=== PATIENT | female | born 1965 | race Caucasian/White ===

== ENCOUNTER 2017-02-23 17:27 | Inpatient (IN) | payer OTHER ==
[~2017-02-23] VITALS: Ht 162.6 cm; Wt 62.1 kg
[2017-02-23] MEDS ORDERED: ONDANSETRON HCL/PF 4 MG/2 ML VIAL ONE (17:48)
[2017-02-23] MEDS ORDERED: HYDROMORPHONE INJ 2 MG/ML DISP.SYRIN ONE ×2 (17:49→19:50)
[2017-02-23] MEDS ORDERED: HYDROMORPHONE 1 MG/1 ML DISP.SYRIN IV ONE ×2 (18:00→20:00)
[2017-02-23] MEDS ORDERED: ONDANSETRON HCL/PF 4 MG/2 ML VIAL IV ONE (18:00)
--- NOTE | 2017-02-23 18:06 | NUR ---
PAIN MEDS GIVEN ORDERED
[2017-02-23] MEDS ORDERED: DOCU-141 PO (18:36)
[2017-02-23] MEDS ORDERED: OXYB10TA PO (18:36)
[2017-02-23] MEDS ORDERED: BACL20TA PO (18:36)
[2017-02-23] MEDS ORDERED: ZINC220C8 PO (18:36)
[2017-02-23] MEDS ORDERED: MULT-24 PO (18:36)
[2017-02-23] MEDS ORDERED: OXYC-133 PO (18:36)
[2017-02-23] MEDS ORDERED: TIZA4TAB4 PO (18:36)
[2017-02-23] MEDS ORDERED: SENN-167 PO (18:36)
[2017-02-23] MEDS ORDERED: DEXT30TA10 PO (18:36)
--- NOTE | 2017-02-23 18:48 | NUR ---
Dr. joseph has been paged
[2017-02-23 18:52] LABS: BASOPHILS # (AUTO) 0.1 /CMM (0.0-0.2); BASOPHILS % (AUTO) 1.5 % (0.0-2.0); EOSINOPHILS # (AUTO) 0.2 /CMM (0.0-0.7); EOSINOPHILS % (AUTO) 2.1 % (0.0-6.0); HEMATOCRIT 45 % (33-45); HEMOGLOBIN 15.1 g/dL (11.5-14.8); LYMPHOCYTES # (AUTO) 1.6 /CMM (0.8-4.8); LYMPHOCYTES % (AUTO) 17.3 % (20.0-44.0); MEAN CORPUSCULAR HEMOGLOBIN 30 PG (26.0-33.0); MEAN CORPUSCULAR HGB CONC 34 g/dl (31.0-36.0); MEAN CORPUSCULAR VOLUME 89 fL (82-100); MONOCYTES # (AUTO) 0.4 /CMM (0.1-1.30); MONOCYTES % (AUTO) 4.2 % (2.0-12.0); NEUTROPHILS # (AUTO) 7.1 /CMM (1.8-8.9); NEUTROPHILS % (AUTO) 74.9 % (43.0-81.0); PLATELET COUNT (AUTO) 195 /CMM (150-450); RDW COEFFICIENT OF VARIATION 13.4 (11.5-15.0); RED BLOOD CELL COUNT(AUTO) 4.99 MIL/uL (4.0-5.2); WHITE BLOOD COUNT (AUTO) 9.4 K/uL (4.3-11.0)
--- NOTE | 2017-02-23 18:53 | NUR ---
ORTHO ON-CALL DR YANES PAGED THRU EXCHANGE
[2017-02-23 19:03] LABS: CALCIUM, SERUM 9.1 mg/dL (8.5-10.1); CREATININE 0.6 mg/dL (0.6-1.3)
[2017-02-23 19:07] LABS: PROTHROMBIN TIME 10.4 SECS (9.5-12.7)
[2017-02-23] MEDS ORDERED: IV NS 0.9% 1,000 ML IV ONE (20:00)
[2017-02-23] MEDS ORDERED: ACETAMINOPHEN 325 MG TABLET PO PRN (20:30)
[2017-02-23] MEDS ORDERED: ZOLPIDEM TARTRATE 5 MG TABLET PO PRN (20:30)
[2017-02-23] MEDS ORDERED: MAG HYDROX/AL HYDROX/SIMETH 30 ML UDC PO PRN (20:30)
[2017-02-23] MEDS ORDERED: HYDROCODONE/APAP 10/325MG 1 EA TABLET PO PRN (20:30)
[2017-02-23] MEDS ORDERED: Z GUARD REMEDY 2 OZ OINT TP PRN (20:30)
[2017-02-23] MEDS ORDERED: ONDANSETRON HCL/PF 4 MG/2 ML VIAL IVP PRN (20:30)
[2017-02-23] MEDS ORDERED: HYDROCODONE/APAP 5/325MG 1 EACH TABLET PO PRN (20:30)
[2017-02-23] MEDS ORDERED: MAGNESIUM HYDROXIDE 30 ML UDC PO PRN (20:30)
[2017-02-23] MEDS ORDERED: MORPHINE SULFATE INJ 2 MG/ML DISP.SYRIN IV PRN ×2 (20:30→22:30)
[2017-02-23 20:41] LABS: APPEARANCE,URINE Slightly Cloudy (CLEAR); BILIRUBIN,URINE Negative (NEGATIVE); BLOOD, URINE Negative Ery/uL (NEGATIVE); COLOR,URINE Yellow (YELLOW); KETONES,URINE Negative (NEGATIVE); LEUKOCYTE ESTERASE ,URINE Small (NEGATIVE); NITRITE, URINE Positive (NEGATIVE); PROTEIN,URINE Negative (NEGATIVE); UGLUCOSE Negative (NEGATIVE); UROBILINOGEN,URINE 0.2 EU/dL (0.2)
[2017-02-23 20:59] LABS: BACTERIA,URINE Moderate /HPF (None Seen); RBC,URINE NONE SEEN /HPF (0-2); SQUAMOUS EPITHELIAL CELL,UR Rare /HPF (None Seen); TRIPLE PHOSPHATE CRYSTAL,UR Moderate /HPF (None Seen); URINE AMORPHOUS PHOSPHATES Rare /HPF (None Seen)
[2017-02-23] MEDS ORDERED: AMPHET ASP PO SCH (21:00)
[2017-02-23] MEDS ORDERED: D AMPHET PO SCH (21:00)
[2017-02-23] MEDS ORDERED: AMPHET PO SCH (21:00)
--- NOTE | 2017-02-23 21:07 | NUR ---
REPORT GIVEN ARVI
[2017-02-23 21:15] VITALS: BP 145/99
--- NOTE | 2017-02-23 21:15 | NUR ---
RN NOTES RECEIVED PATIENT FROM ER FOR DX RIGHT HIP FRACTURE. PATIENT AO X 3, ABLE TO MAKE NEEDS KNOWN. NO ACUTE DISTRESS NOTED. PAIN 8/10 ON RIGHT HIP WHEN DURING TRANSFER ONTO BED. IV SITE PATENT, INTACT; FLUSHED. BURGOS CATHETER PATENT, INTACT; DRAINING CLEAR, YELLOW URINE. ON LOW BED WITH BILATERAL UPPER SIDE RAILS UP. CALL GUTIERREZ WITHIN EASY REACH. WAITING FOR ADMISSION ORDERS. WILL CONTINUE TO MONITOR PATIENT.
[2017-02-23 21:30] VITALS: BP 145/99
[2017-02-23] MEDS ORDERED: MORPHINE SULFATE INJ 4 MG/ML DISP.SYRIN ONE (22:14)
[2017-02-23] MEDS ORDERED: MORPHINE SULFATE INJ 4 MG/ML DISP.SYRIN IV PRN (22:30)
[2017-02-23] MEDS ORDERED: NICOTINE PATCH (21MG) 21 MG PATCH.TD24 TD ONE (23:26)
[2017-02-23] MEDS: NICOTINE PATCH (21MG) 21 MG PATCH.TD24 TD SCH (23:30)
[2017-02-23] MEDS ORDERED: ZOLPIDEM TARTRATE 5 MG TABLET ONE (23:50)
[2017-02-24] MEDS ORDERED: CEFTRIAXONE 1 G in IV D5W 50 ML IV SCH (01:30)
[2017-02-24] MEDS ORDERED: CEFTRIAXONE 1 G VIAL ONE (02:01)
[2017-02-24] MEDS ORDERED: HYDROMORPHONE 1 MG/1 ML DISP.SYRIN ONE ×2 (02:02→05:57)
[2017-02-24] MEDS: HYDROMORPHONE 1 MG/1 ML DISP.SYRIN IV PRN ×9 (02:10→23:11)
--- NOTE | 2017-02-24 06:15 | NUR ---
RN NOTES PATIENT WITH EYES CLOSED, AROUSABLE. RESPIRATIONS EVEN. DILAUDID IV GIVEN FOR RIGHT HIP PAIN. DUE MED GIVEN WITH NO ASE NOTED. NEEDS ATTENDED. HIP PRECAUTION MAINTAINED. SAFETY PRECAUTIONS AND COMFORT MEASURES IN PLACE. WILL GIVE REPORT TO DAY SHIFT FOR CONTINUITY OF CARE.
[2017-02-24 07:37] LABS: BASOPHILS % (AUTO) 0.3 % (0.0-2.0); EOSINOPHILS # (AUTO) 0.3 /CMM (0.0-0.7); EOSINOPHILS % (AUTO) 4.7 % (0.0-6.0); HEMATOCRIT 39 % (33-45); HEMOGLOBIN 13.5 g/dL (11.5-14.8); LYMPHOCYTES # (AUTO) 2.3 /CMM (0.8-4.8); MEAN CORPUSCULAR HEMOGLOBIN 31 PG (26.0-33.0); MEAN CORPUSCULAR HGB CONC 35 g/dl (31.0-36.0); MEAN CORPUSCULAR VOLUME 90 fL (82-100); MONOCYTES # (AUTO) 0.5 /CMM (0.1-1.30); MONOCYTES % (AUTO) 7.8 % (2.0-12.0); NEUTROPHILS # (AUTO) 3.8 /CMM (1.8-8.9); NEUTROPHILS % (AUTO) 54.2 % (43.0-81.0); PLATELET COUNT (AUTO) 168 /CMM (150-450); RDW COEFFICIENT OF VARIATION 14.7 (11.5-15.0); RED BLOOD CELL COUNT(AUTO) 4.33 MIL/uL (4.0-5.2); WHITE BLOOD COUNT (AUTO) 7.1 K/uL (4.3-11.0)
[2017-02-24 07:44] LABS: INR 0.98 (0.87-1.13); PROTHROMBIN TIME 10.2 SECS (9.5-12.7)
[2017-02-24 08:00] VITALS: BP 136/84
--- NOTE | 2017-02-24 08:12 | NUR ---
RN MS INITIAL NOTES RECEIVED PT LAYING IN BED. A/OX4, AWAKE ALERT AND RESPONSIVE. RESPIRATIONS ARE EVEN AND UNLABORED, NOT IN ANY ACUTE DISTRESS NOTED. C/O PAIN TO RIGHT HIP, WAITING FOR PHARMACY TO VERIFIY MEDICATIONS. PT IS AWARE. WILL CONTINUE TO MONITOR AND REPOSITION FOR COMFORT. REMINDED PT TO USE CALL LIGHT WHEN ASSISTANCE IS NEEDED. CALL LIGHT IS LEFT WITHIN REACH OF PT.
[2017-02-24 08:13] LABS: CALCIUM, SERUM 8.9 mg/dL (8.5-10.1); CREATININE 0.6 mg/dL (0.6-1.3); MAGNESIUM 1.8 mg/dL (1.8-2.4); PHOSPHORUS 3.9 mg/dL (2.5-4.9); POTASSIUM 3.8 mmol/L (3.5-5.1)
[2017-02-24] MEDS: PANTOPRAZOLE 40 MG TABLET.DR PO SCH (09:00)
[2017-02-24] MEDS ORDERED: SENNOSIDES 8.6 MG TABLET PO SCH (09:00)
[2017-02-24] MEDS: ZINC SULFATE 220 MG CAPSULE PO SCH (09:01)
[2017-02-24] MEDS: BACLOFEN (10 MG) 10 MG TABLET PO SCH ×3 (09:01→17:05)
[2017-02-24] MEDS: MULTIVITAMINS,THERAGRAN 1 UDTAB TABLET PO SCH (09:01)
[2017-02-24] MEDS: OXYBUTYNIN CHLORIDE 5 MG TABLET PO SCH ×2 (09:01→17:05)
[2017-02-24] MEDS: NICOTINE PATCH (21MG) 21 MG PATCH.TD24 TD SCH (09:02)
[2017-02-24] MEDS: TIZANIDINE HCL 4 MG TABLET PO SCH ×3 (09:02→17:05)
--- NOTE | 2017-02-24 13:11 | NUR ---
RN MS NOTES CLEARED MEDICATIONS THIS AM THAT WAS NONADMIN BEFORE 7AM.
[2017-02-24 13:28] LABS: THYROID STIMULATING HORMONE 1.883 uIU/mL (0.358-3.74)
[2017-02-24 14:14] LABS: MAGNESIUM 1.7 mg/dL (1.8-2.4)
[2017-02-24 16:00] VITALS: BP 118/72
[2017-02-24] MEDS: Magnesium 1GM/D5W 100ML PREMIX 100 ML IV SCH ×2 (16:15→17:10)
--- NOTE | 2017-02-24 18:45 | NUR ---
RN NOTES PT REQUESTED FOR ADDERALL, PHARMACY DOES NOT DISPENSE ADDERALL. SPOKE W/ DR. HARVEY AND STATED THAT "PATIENT WILL NEED TO BRING HER HOME MEDICATION." PATIENT MADE AWARE AND STATED "THATS OKAY. I WILL KEEP MY ADDERALL AT HOME." MURALI MORRISON OF DR. YANES CAME IN TO SEE THE PATIENT AND STATED HE WILL PUT ORDERS FOR SURGERY TOMORROW. PT MADE AWARE AND AGREED.
[2017-02-24] MEDS ORDERED: oxyCODONE/APAP (5/325 MG) 1 UDTAB TABLET PO PRN (19:00)
--- NOTE | 2017-02-24 19:51 | NUR ---
RN MS CLOSING NOTES TAMIKO ALFONSO PUT ORDERS FOR SURGERY TOMORROW FOR RIGHT HIP INTRAMEDULLARY RODDING. PT SIGNED CONSENTS AND IS EXCITED FOR SURGERY TOMORROW. ALL DUE MEDS GIVEN, NEEDS MET AND RENDERED. RESPIRATIONS ARE EVEN AND UNLABORED, NOT IN ANY ACUTE DISTRESS NOTED. IV TO LEFT WRIST IS PATENT, DRESSING KEPT CLEAN AND DRY. MAGNESIUM REPLACEMENT DONE WITH NO ASE NOTED. PT KEPT COMFORTABLE, UNABLE TO MOVE A LOT DUE TO RIGHT HIP FX. PT STATED SHE IS HAPPY WITH CARE AND CANT WAIT TO GO HOME. ENDORSED TO NEXT SHIFT FOR CONTINTUITY OF CARE.
[2017-02-24 20:00] VITALS: BP 114/70
--- NOTE | 2017-02-24 20:00 | NUR ---
ms/rn opening notes received report from am rn, patient, alert, oriented x3, able to verbalize needs, respirations even and unlabored, skin warm to touch, require assistance at al times. informed about procedure at 7am in am, consent form has been signed, check list will be provided. bed in lock position. Call lights within reach. Will continue to monitor.
[2017-02-24 20:18] VITALS: BP 114/70
--- NOTE | 2017-02-24 21:00 | NUR ---
ms/rn notes patient reported pain level of 8/10 on right hip will give as needed pain med, will continue to monitor.
[2017-02-24] MEDS: CEFTRIAXONE 1 G in IV D5W 50 ML IV SCH (22:54)
--- NOTE | 2017-02-24 23:19 | NUR ---
ms/rn notes PATIENT PAIN MANAGEMENT MONITORING, ALERT, ORIENTED X3, ABLE TO VERBALIZE NEEDS, REPORTED PAIN LEVEL OF 8/10 , ADMINISTER DILAUDID IVP WITH ORDERED DOSE, WILL MONITOR EFFECTIVENESS.
--- NOTE | 2017-02-24 23:41 | NUR ---
MS/RN NOTES PATIENT REPORTED NICOTINE PATCH REMOVED ACCIDENTALLY APPEARED AGITATED AND REQUESTING FOR MED TO BE APPLIED, MD CONTACTED AND ORDER FOR A ONE TIME PATCH TO BE GIVEN. ORDER TO CARRIED OUT/
[2017-02-25] VITALS (9 sets, daily range): BP systolic 97–123; BP diastolic 56–85
[2017-02-25] MEDS ORDERED: NICOTINE PATCH (21MG) 21 MG PATCH.TD24 TD ONE
[2017-02-25] MEDS ORDERED: NICOTINE PATCH (21MG) 21 MG PATCH.TD24 TD SCH
[2017-02-25] MEDS ORDERED: HYDROMORPHONE 1 MG/1 ML DISP.SYRIN ONE ×4 (01:04→08:47)
[2017-02-25] MEDS: HYDROMORPHONE 1 MG/1 ML DISP.SYRIN IV PRN (01:09)
[2017-02-25] MEDS ORDERED: BACITRACIN 50000 UNITS/VIAL ONE (05:47)
[2017-02-25] MEDS ORDERED: BUPIVACAINE 0.5 % PF 150 MG/30 ML VIAL ONE (05:47)
[2017-02-25] MEDS ORDERED: ANESTHESIA TRAY IN PYXIS 1 EA TRAY MC ONE (05:52)
--- NOTE | 2017-02-25 06:03 | NUR ---
ms/rn notes OR NURSE CAME AND HOUSEHOLD COOK PATIENT IN BED, PREPARED CHECKLIST, CITAL SIGNS CHECK, B/P 130/73, PULSE 92, O2 SAT ROOM AIR AT 96%, TEMP AT 97.8, VERBALIZED PAIN OF 8/10. , BURGOS EMPTIED, BELONGINGS,KEPT BY BEDSIDE, TO HOUSEHOLD COOK. PATIENT ALERT, ORIENTED. ASSISTED FOR SAFETY.
[2017-02-25] MEDS ORDERED: FENTANYL PF 100MCG/2ML AMPUL ONE ×3 (06:23→09:07)
[2017-02-25] MEDS ORDERED: MIDAZOLAM HCL 2 MG/2ML VIAL ONE (06:23)
[2017-02-25] MEDS ORDERED: ROCURONIUM BROMIDE 50 MG/5 ML ONE (06:24)
[2017-02-25] MEDS ORDERED: CLINDAMYCIN 900 MG/6 ML VIAL ONE (06:24)
--- NOTE | 2017-02-25 07:15 | NUR ---
PT IS IN SURGERY. REPORT RECEIVED FROM NIGHT RN ON PATIENT CONDITION.
[2017-02-25 07:29] LABS: CALCIUM, SERUM 8.8 mg/dL (8.5-10.1); CREATININE 0.5 mg/dL (0.6-1.3); MAGNESIUM 1.9 mg/dL (1.8-2.4); POTASSIUM 3.6 mmol/L (3.5-5.1)
[2017-02-25 08:37] LABS: HEMOGLOBIN 13.3 g/dL (11.5-14.8)
[2017-02-25] MEDS: ZINC SULFATE 220 MG CAPSULE PO SCH (09:00)
--- NOTE | 2017-02-25 09:25 | NUR ---
PT RECEIVED FROM SURGERY. NO SOB OR DISTRESS NOTED AT THIS TIME. PATIENT REPORTS 10/10 PAIN. OR GAVE ALL MEDICATIONS THEY WERE ABLE. WILL FAX RX ORDERS AND FOLLOW UP SOON POSSIBLE. VITALS CHECKED AND RECORDED. WILL CONTINUE TO MONITOR.
[2017-02-25] MEDS: TIZANIDINE HCL 4 MG TABLET PO SCH ×3 (09:27→16:23)
[2017-02-25] MEDS: BACLOFEN (10 MG) 10 MG TABLET PO SCH ×3 (09:28→16:23)
[2017-02-25] MEDS ORDERED: MORPHINE SULFATE INJ 4 MG/ML DISP.SYRIN IV PRN ×2 (09:30)
[2017-02-25] MEDS ORDERED: TRAMADOL HCL 50 MG TABLET PO PRN (09:30)
[2017-02-25] MEDS: oxyCODONE IR immediate release 5 MG PO PRN ×3 (09:34→22:38)
[2017-02-25] MEDS ORDERED: ACETAMINOPHEN 325 MG TABLET PO PRN (10:00)
--- NOTE | 2017-02-25 10:40 | NUR ---
RECEIVED A CALL BACK FROM NATY. STATES OK TO CHANGE MORPHINE TO DILAUDID 1MG Q2H.
[2017-02-25] MEDS: HYDROMORPHONE INJ 2 MG/ML DISP.SYRIN IV PRN ×4 (10:48→22:30)
[2017-02-25] MEDS: PANTOPRAZOLE 40 MG TABLET.DR PO SCH (10:49)
[2017-02-25] MEDS: MULTIVITAMINS,THERAGRAN 1 UDTAB TABLET PO SCH (10:49)
[2017-02-25] MEDS: OXYBUTYNIN CHLORIDE 5 MG TABLET PO SCH ×2 (10:49→16:23)
[2017-02-25] MEDS: NICOTINE PATCH (21MG) 21 MG PATCH.TD24 TD SCH (10:49)
[2017-02-25] MEDS ORDERED: HYDROMORPHONE 1 MG/1 ML DISP.SYRIN IV PRN (11:00)
--- NOTE | 2017-02-25 16:21 | NUR ---
CALLED PHARMACY PT CLINDAMYCIN IS MISSING. PHARMACIST AC STATES SHE WILL SEND THE MEDICATION.
[2017-02-25] MEDS: CLINDAMYCIN 900 MG in IV D5W 50 ML IV SCH (16:50)
--- NOTE | 2017-02-25 17:25 | NUR ---
RECEIVED A CALL THAT THE PATIENT IS POSITIVE FOR MRSA OF THE NARES. CALLED MD AND PLACED ORDER FOR BACTROBAN OINT. PT PLACED ON ISOLATION.
--- NOTE | 2017-02-25 19:14 | NUR ---
NO SIGNIFICANT CHANGES IN PATIENT CONDITION THROUGHOUT THE SHIFT. NO SOB OR DISTRESS NOTED AT THIS TIME. PATIENT REPORTS TOLERABLE PAIN. BED IN A LOW POSITION, CALL LIGHT WITHIN PATIENT REACH. WILL ENDORSE FOR GRADY.
--- NOTE | 2017-02-25 19:30 | NUR ---
MSRN FULLY AWAKE, AT BEDSIDE. PLAN OF CARE AND MEDICATION REGIMEN CINDY PAIN MGT DISCUSSED WITH PATIENT, APPEARS TO UNDERSTAND. WILL CALL IF NEEDED. HL PATENT. TO CONTINUE. RIGHT HIP DRESSING D/I. FC TO GRAVITY GOOD OUTPUT
[2017-02-25] MEDS: DOCUSATE SODIUM 100 MG CAPSULE PO PRN (19:57)
[2017-02-25] MEDS: SENNOSIDES 8.6 MG TABLET PO PRN (19:57)
--- NOTE | 2017-02-25 22:00 | NUR ---
MSRN MULTIPLE NEEDS, ON FREQ PAIN MED. STATED INCREASING ANXIETY WHEN PAIN MED NOT GIVEN ON TIME. ABLE TO POSITION SELF PER COMFORT WITH MIN ASSIST. OTHER DUE MEDS GIVEN. INSISTED TO HAVE ANOTHER DOSE OF ZANAFLEX AND BACLOFEN. ORDERS RECEIVED FROM DR. DRAKE DIALLO.
[2017-02-25] MEDS: CEFTRIAXONE 1 G in IV D5W 50 ML IV SCH (22:38)
[2017-02-25] MEDS ORDERED: BACLOFEN (10 MG) 10 MG TABLET ONE (23:21)
[2017-02-25] MEDS ORDERED: TIZANIDINE HCL 4 MG TABLET PO SCH (23:30)
[2017-02-26] MEDS: MUPIROCIN OINT 2% 22 GM TUBE SCH ×3 (00:07→21:02)
[2017-02-26] MEDS: BACLOFEN (10 MG) 10 MG TABLET PO SCH ×5 (00:10→20:53)
[2017-02-26] MEDS: HYDROMORPHONE INJ 2 MG/ML DISP.SYRIN IV PRN ×7 (02:01→20:54)
--- NOTE | 2017-02-26 03:23 | NUR ---
MSRN SLEEPS ON/OFF. ATE SOUP, STATED UNABLE TO GO BACK TO SLEEP.
--- NOTE | 2017-02-26 06:00 | NUR ---
CK SLEEPING SOUNDLY, CLOSELY WATCHED. 1700 CC FROM BURGOS.
[2017-02-26 08:00] VITALS: BP 90/57
[2017-02-26 08:22] LABS: BASOPHILS % (AUTO) 0.4 % (0.0-2.0); EOSINOPHILS # (AUTO) 0.2 /CMM (0.0-0.7); EOSINOPHILS % (AUTO) 2.3 % (0.0-6.0); HEMATOCRIT 26 % (33-45); LYMPHOCYTES # (AUTO) 2.6 /CMM (0.8-4.8); LYMPHOCYTES % (AUTO) 28.9 % (20.0-44.0); MEAN CORPUSCULAR HEMOGLOBIN 31 PG (26.0-33.0); MEAN CORPUSCULAR HGB CONC 35 g/dl (31.0-36.0); MEAN CORPUSCULAR VOLUME 91 fL (82-100); MONOCYTES # (AUTO) 0.8 /CMM (0.1-1.30); MONOCYTES % (AUTO) 9.1 % (2.0-12.0); NEUTROPHILS # (AUTO) 5.3 /CMM (1.8-8.9); NEUTROPHILS % (AUTO) 59.3 % (43.0-81.0); PLATELET COUNT (AUTO) 131 /CMM (150-450); RDW COEFFICIENT OF VARIATION 13.9 (11.5-15.0); RED BLOOD CELL COUNT(AUTO) 2.88 MIL/uL (4.0-5.2)
[2017-02-26] MEDS: TIZANIDINE HCL 4 MG TABLET PO SCH ×3 (08:37→16:35)
[2017-02-26] MEDS: MULTIVITAMINS,THERAGRAN 1 UDTAB TABLET PO SCH (08:37)
[2017-02-26] MEDS: OXYBUTYNIN CHLORIDE 5 MG TABLET PO SCH ×2 (08:38→16:35)
[2017-02-26] MEDS: ZINC SULFATE 220 MG CAPSULE PO SCH (08:43)
[2017-02-26] MEDS: NICOTINE PATCH (21MG) 21 MG PATCH.TD24 TD SCH (08:43)
[2017-02-26] MEDS: PANTOPRAZOLE 40 MG TABLET.DR PO SCH (08:43)
[2017-02-26] MEDS: RIVAROXABAN 10 MG TABLET PO SCH (08:46)
[2017-02-26 08:47] LABS: CALCIUM, SERUM 8.1 mg/dL (8.5-10.1); CREATININE 0.5 mg/dL (0.6-1.3); POTASSIUM 3.6 mmol/L (3.5-5.1)
[2017-02-26] MEDS: oxyCODONE IR immediate release 5 MG PO PRN ×2 (10:05→17:49)
[2017-02-26] MEDS: CLINDAMYCIN 900 MG in IV D5W 50 ML IV SCH ×3 (10:05)
[2017-02-26] MEDS: SOD FERRIC GLUC 125 MG in IV NS 0.9% 100 ML IV SCH (14:33)
--- NOTE | 2017-02-26 19:40 | NUR ---
MSRN FULLY AWAKE, AT BEDSIDE. NO NEEDS FOR NOW.
[2017-02-26 20:19] VITALS: BP 95/47
[2017-02-26] MEDS: SENNOSIDES 8.6 MG TABLET PO PRN (20:53)
[2017-02-26] MEDS: DOCUSATE SODIUM 100 MG CAPSULE PO PRN (20:53)
--- NOTE | 2017-02-26 21:40 | NUR ---
MSRN VERBALIZES RIGHT HIP PAIN AND BACK SPASMS, DILAUDED 1MG ADMINISTERD.
--- NOTE | 2017-02-26 22:45 | NUR ---
MSRN IN GOOD SPIRITS, STATED EAGER TO SEE PHYSICAL THERAPIST IN AM AND WILL TRY TO INCREASE HER ACTIVITY AND PARTICIPATION. HS CARE DONE, ABLE TO REPOSITION SELF FOR COMFORT. ALL NEEDS MADE, CONTINUED.
[2017-02-26] MEDS: CEFTRIAXONE 1 G in IV D5W 50 ML IV SCH (22:53)
[2017-02-27] MEDS: oxyCODONE IR immediate release 5 MG PO PRN ×2 (00:08→21:43)
[2017-02-27] MEDS: HYDROMORPHONE INJ 2 MG/ML DISP.SYRIN IV PRN ×8 (01:46→22:41)
--- NOTE | 2017-02-27 03:34 | NUR ---
MSRN SLEEPING APPEARS COMFORTABLE. HAS BEEN COMPLAINING OF RIGHT HIP PAIN Q 2 TO 3 HOURS LAST NIGHT, HAS BEEN MEDICATED WITH DILAUDED IV AND OXY IR IN BETWEEN. LESS ANXIOUS FROM LAST NIGHT. CLOSELY WATCHED
[2017-02-27 07:53] LABS: BASOPHILS % (AUTO) 0.3 % (0.0-2.0); EOSINOPHILS # (AUTO) 0.3 /CMM (0.0-0.7); EOSINOPHILS % (AUTO) 4.2 % (0.0-6.0); HEMATOCRIT 26 % (33-45); LYMPHOCYTES # (AUTO) 1.9 /CMM (0.8-4.8); LYMPHOCYTES % (AUTO) 24.9 % (20.0-44.0); MEAN CORPUSCULAR HEMOGLOBIN 31 PG (26.0-33.0); MEAN CORPUSCULAR HGB CONC 35 g/dl (31.0-36.0); MEAN CORPUSCULAR VOLUME 90 fL (82-100); MONOCYTES # (AUTO) 0.6 /CMM (0.1-1.30); MONOCYTES % (AUTO) 7.4 % (2.0-12.0); NEUTROPHILS # (AUTO) 4.8 /CMM (1.8-8.9); NEUTROPHILS % (AUTO) 63.2 % (43.0-81.0); PLATELET COUNT (AUTO) 161 /CMM (150-450); RED BLOOD CELL COUNT(AUTO) 2.87 MIL/uL (4.0-5.2); WHITE BLOOD COUNT (AUTO) 7.7 K/uL (4.3-11.0)
[2017-02-27 08:00] VITALS: BP 126/69
[2017-02-27 08:30] LABS: CALCIUM, SERUM 8.5 mg/dL (8.5-10.1); CREATININE 0.5 mg/dL (0.6-1.3); POTASSIUM 3.6 mmol/L (3.5-5.1)
[2017-02-27] MEDS: NICOTINE PATCH (21MG) 21 MG PATCH.TD24 TD SCH (08:30)
[2017-02-27] MEDS: PANTOPRAZOLE 40 MG TABLET.DR PO SCH (08:30)
[2017-02-27] MEDS: MULTIVITAMINS,THERAGRAN 1 UDTAB TABLET PO SCH (08:30)
[2017-02-27] MEDS: BACLOFEN (10 MG) 10 MG TABLET PO SCH ×4 (08:30→20:27)
[2017-02-27] MEDS: ZINC SULFATE 220 MG CAPSULE PO SCH (08:30)
[2017-02-27] MEDS: TIZANIDINE HCL 4 MG TABLET PO SCH ×3 (08:30→17:45)
[2017-02-27] MEDS: OXYBUTYNIN CHLORIDE 5 MG TABLET PO SCH ×2 (08:30→17:45)
[2017-02-27] MEDS: MUPIROCIN OINT 2% 22 GM TUBE SCH ×2 (08:40→20:33)
[2017-02-27] MEDS: SOD FERRIC GLUC 125 MG in IV NS 0.9% 100 ML IV SCH (15:17)
[2017-02-27 16:00] VITALS: BP 123/82
[2017-02-27] MEDS: RIVAROXABAN 10 MG TABLET PO SCH (17:55)
--- NOTE | 2017-02-27 19:15 | NUR ---
RN NOTES PATIENT ALERT AND ORIENTED X4, NO DISTRESS NOTED, DENIES PAIN AT THIS TIME, PATIENT WORKED WITH PHYSICAL THERAPY TODAY. ALL NEEDS ATTENDED AND MET, PATIENT ABLE TO HELP WITH REPOSITIONING. CALL LIGHT WITHIN REACH, WILL ENDORSE TO CLOUD AUTOMATION TESTER FOR GRADY.
--- NOTE | 2017-02-27 19:50 | NUR ---
MS RN NOTE: PATIENT RESTING IN BED, NO ACUTE DISTRESS NOTED. BREATHING EVEN AND UNLABORED, NO SOB NOTED. IV TO LFA IN PLACE. BURGOS CATHETER IN PLACE DRAINING CLEAR YELLOW URINE. BED LOCKED AND IN LOWEST POSITION, CALL LIGHT IN REACH. WILL CONTINUE TO MONITOR.
--- NOTE | 2017-02-27 20:30 | NUR ---
MS RN NOTE: PATIENT COMPLAINS OF PAIN TO RIGHT HIP/LEG, DILAUDID 1MG IV GIVEN PER MD ORDER. WILL CONTINUE TO MONITOR.
[2017-02-27 20:36] VITALS: BP 116/71
[2017-02-27] MEDS: SENNOSIDES 8.6 MG TABLET PO PRN (20:38)
[2017-02-27] MEDS: DOCUSATE SODIUM 100 MG CAPSULE PO PRN (20:38)
--- NOTE | 2017-02-27 21:45 | NUR ---
MS RN NOTE: PATIENT COMPLAINS OF PAIN TO RIGHT HIP/LEG, OXY IR 5MG ORAL GIVEN PER MD ORDER. PATIENT ALSO REQUEST FOR STOOL SOFTENER AND THAT NEEDS BOTH COLACE AND SENAKOT TOGETHER SINCE SHE HAS RECTAL PROLAPSE. COLACE AND SENAKOT ORAL GIVEN PER MD ORDER. WILL CONTINUE TO MONITOR.
[2017-02-27] MEDS: CEFTRIAXONE 1 G in IV D5W 50 ML IV SCH (22:41)
--- NOTE | 2017-02-27 22:45 | NUR ---
MS RN NOTE: PATIENT COMPLAINS OF PAIN TO RIGHT HIP/LEG, DILAUDID 1MG IV GIVEN PER MD ORDER. WILL CONTINUE TO MONITOR.
--- NOTE | 2017-02-28 00:30 | NUR ---
MS RN NOTE: PATIENT MOVED TO ROOM 201, BELONGINGS MOVED WITH PATIENT. BED LOCKED AND CALL LIGHT IN REACH. WILL CONTINUE TO MONITOR.
[2017-02-28] MEDS: HYDROMORPHONE INJ 2 MG/ML DISP.SYRIN IV PRN ×9 (00:48→17:55)
--- NOTE | 2017-02-28 03:00 | NUR ---
MS RN NOTE: PATIENT COMPLAINS OF PAIN TO RIGHT HIP/LEG, DILAUDID 1MG IV GIVEN PER MD ORDER. WILL CONTINUE TO MONITOR.
--- NOTE | 2017-02-28 05:00 | NUR ---
MS RN NOTE: PATIENT COMPLAINS OF PAIN TO RIGHT HIP/LEG, DILAUDID 1MG IV GIVEN PER MD ORDER. WILL CONTINUE TO MONITOR.
--- NOTE | 2017-02-28 06:05 | NUR ---
MS RN NOTE: PATIENT RESTING IN BED, NO ACUTE DISTRESS NOTED. BREATHING EVEN AND UNLABORED, NO SOB NOTED. IV TO LFA IN PLACE. BURGOS CATHETER IN PLACE DRAINING CLEAR YELLOW URINE. BED LOCKED AND IN LOWEST POSITION, CALL LIGHT IN REACH. WILL ENDORSE TO DAY NURSE TO CONTINUE WITH PLAN OF CARE.
[2017-02-28 08:00] VITALS: BP_SYST 114; BP_DIAS 60; BP_DIAS 61
[2017-02-28] MEDS: NICOTINE PATCH (21MG) 21 MG PATCH.TD24 TD SCH (08:14)
[2017-02-28] MEDS: PANTOPRAZOLE 40 MG TABLET.DR PO SCH (08:14)
[2017-02-28] MEDS: BACLOFEN (10 MG) 10 MG TABLET PO SCH ×3 (08:14→16:12)
[2017-02-28] MEDS: OXYBUTYNIN CHLORIDE 5 MG TABLET PO SCH ×2 (08:14→16:13)
[2017-02-28] MEDS: TIZANIDINE HCL 4 MG TABLET PO SCH ×3 (08:14→16:13)
[2017-02-28] MEDS: ZINC SULFATE 220 MG CAPSULE PO SCH (08:14)
[2017-02-28] MEDS: MULTIVITAMINS,THERAGRAN 1 UDTAB TABLET PO SCH (08:15)
[2017-02-28] MEDS: MUPIROCIN OINT 2% 22 GM TUBE SCH (08:24)
--- NOTE | 2017-02-28 08:30 | NUR ---
RN MS INITIAL NOTES RECEIVED PT LAYING IN BED WITH HOB ELEVATED. S/P RIGHT HIP FX, C/O PAIN 09/29. A/O X4, RESPIRATIONS ARE EVEN AND UNLABORED, NOT IN ANY ACUTE DISTRESS NOTED. IV TO LAF IS NOT PATENT, WILL INSERT A NEW PERIPHERAL IV. REMINDED PT TO USE CALL LIGHT WHEN ASSISTANCE IS NEEDED, CALL LIGHT LEFT WITHIN REACH.
[2017-02-28 08:48] LABS: BASOPHILS % (AUTO) 0.2 % (0.0-2.0); EOSINOPHILS # (AUTO) 0.3 /CMM (0.0-0.7); EOSINOPHILS % (AUTO) 4.6 % (0.0-6.0); HEMATOCRIT 25 % (33-45); HEMOGLOBIN 8.6 g/dL (11.5-14.8); LYMPHOCYTES # (AUTO) 2.1 /CMM (0.8-4.8); LYMPHOCYTES % (AUTO) 30.4 % (20.0-44.0); MEAN CORPUSCULAR HEMOGLOBIN 31 PG (26.0-33.0); MEAN CORPUSCULAR HGB CONC 35 g/dl (31.0-36.0); MEAN CORPUSCULAR VOLUME 91 fL (82-100); MONOCYTES # (AUTO) 0.6 /CMM (0.1-1.30); MONOCYTES % (AUTO) 8.7 % (2.0-12.0); NEUTROPHILS # (AUTO) 3.9 /CMM (1.8-8.9); NEUTROPHILS % (AUTO) 56.1 % (43.0-81.0); PLATELET COUNT (AUTO) 182 /CMM (150-450); RDW COEFFICIENT OF VARIATION 13.8 (11.5-15.0); RED BLOOD CELL COUNT(AUTO) 2.75 MIL/uL (4.0-5.2)
[2017-02-28 08:56] LABS: CALCIUM, SERUM 8.5 mg/dL (8.5-10.1); CREATININE 0.5 mg/dL (0.6-1.3); POTASSIUM 3.3 mmol/L (3.5-5.1)
[2017-02-28] MEDS: oxyCODONE IR immediate release 5 MG PO PRN ×2 (09:58→16:50)
[2017-02-28] MEDS ORDERED: POTASSIUM CHLORIDE 20 MEQ POWDER PACKET NG SCH (12:30)
[2017-02-28] MEDS: SOD FERRIC GLUC 125 MG in IV NS 0.9% 100 ML IV SCH (14:13)
[2017-02-28 15:44] VITALS: BP 103/63
[2017-02-28] MEDS: RIVAROXABAN 10 MG TABLET PO SCH (16:12)
--- NOTE | 2017-02-28 18:50 | NUR ---
GENERAL SUPERINTENDENT NOTES PATIENT DISCHARGED TO [facility] AT 1850 VIA AMBULANCE ACCOMANIED BY EMT PERSONNEL AND IN MEDICALLY STABLE CONDITION. A/O X4, RESPIRATIONS ARE EVEN AND UNLABORED, NOT IN ANY ACUTE DISTRESS NOTED. VITAL SIGNS REMAINS WNL. ADMINISTERED ALL DUE MEDICATIONS, INCLUDING DILAUDID 1MG VIA IV FOR PAIN LEVEL 6/10 PRIOR TO LEAVING. DISCHARGE PAPERWORKS EXPLAINED TO PT AND WITH VERBALIZED UNDERSTANDING. ALL BELONGINGS SENT WITH PT. CALLED [facility], SPOKE WITH PRICILA TO GIVE REPORT AT 1700. BEDSIDE ENDORSEMENT GIVEN TO EMT PERSONNEL.
== END 2017-02-28 18:45 | DRG 481 ==
LOC: ER 17:28 → MEDSG2 20:59
PROVIDERS: ADMIT Internal Medicine; ATTEND Internal Medicine
PROC: 0QS604Z Reposition Right Upper Femur with Internal Fixation Device, Open Approach (ICD-10-PCS; principal; 2017-02-25 06:48)
DX: S72.144A Nondisplaced intertrochanteric fracture of right femur, initial encounter for closed fracture (principal); G82.20 Paraplegia, unspecified; N39.0 Urinary tract infection, site not specified; N31.9 Neuromuscular dysfunction of bladder, unspecified; F32.9 Major depressive disorder, single episode, unspecified; W19.XXXA Unspecified fall, initial encounter; G89.29 Other chronic pain; F90.9 Attention-deficit hyperactivity disorder, unspecified type; F17.200 Nicotine dependence, unspecified, uncomplicated; Z98.1 Arthrodesis status; Y93.9 Activity, unspecified; Y92.009 Unspecified place in unspecified non-institutional (private) residence as the place of occurrence of the external cause; D64.9 Anemia, unspecified; R79.89 Other specified abnormal findings of blood chemistry
CPT/HCPCS: 36415; 71045-TC; 73502; 73552; 73564-TC; 80048-TC; 80061-TC; 81000-TC; 82306; 83735-TC; 84100-TC; 84439-TC; 84443-TC; 85025-TC; 85027-TC; 85610-TC; 85730-TC; 86850-TC; 87081-TC; 87086-TC; 93307-TC; 97110-TC; 97530-TC; A4216; A4606; A6209; A6402; C1713; J0696; J1170; J2250; J2270; J2405; J2916; J3010; J3475; J3490; J7030; J7060; Z7610

== ENCOUNTER 2017-03-29 16:28 | Inpatient (IN) | payer OTHER, MEDICAID ==
[~2017-03-29] VITALS: Ht 162.6 cm; Wt 59.0 kg
[~2017-03-29 16:28] MED LIST: BACL20TA PO; DEXT30TA10 PO; DOCU-141 PO; MULT-24 PO; OXYB10TA PO; OXYC-133 PO; SENN-167 PO; TIZA4TAB4 PO; ZINC220C8 PO
--- NOTE | 2017-03-29 16:35 | NUR ---
GAIL 889 FROM HOME FOR BACK PAIN WITH HISTORY "BULGING DISK." PT. TOOK 4MG DILAUDID AND 20 MG OXYCODONE AT HOME WITH NO RELIEF. PATIENT IS A/OX 4. BREATHING EVEN AND UNLABORED. NO SOB. VITALS STABLE. SAFETY AND COMFORT MEASURES IN PLACE. AWAITING MD ORDERS.
[2017-03-29] MEDS ORDERED: ONDANSETRON HCL/PF 4 MG/2 ML VIAL ONE (16:54)
[2017-03-29] MEDS ORDERED: HYDROMORPHONE INJ 2 MG/ML DISP.SYRIN ONE (16:55)
[2017-03-29] MEDS ORDERED: HYDROMORPHONE INJ 2 MG/ML DISP.SYRIN IV ONE (17:00)
[2017-03-29] MEDS ORDERED: ONDANSETRON HCL/PF - ER 4 MG/2 ML VIAL IV ONE (17:00)
--- NOTE | 2017-03-29 17:15 | NUR ---
NEW IV STARTED ON R HAND, 20 G.
--- NOTE | 2017-03-29 17:20 | NUR ---
PATIENT MEDICATED PER MD ORDERS.
[2017-03-29] MEDS ORDERED: IV NS 0.9% 1,000 ML BAG IV ONE (18:00)
--- NOTE | 2017-03-29 18:15 | NUR ---
URINE OBTAINED AND SENT TO LAB.
[2017-03-29 18:25] LABS: BASOPHILS # (AUTO) 0.4 /CMM (0.0-0.2); BASOPHILS % (AUTO) 2.7 % (0.0-2.0); EOSINOPHILS # (AUTO) 0.6 /CMM (0.0-0.7); EOSINOPHILS % (AUTO) 4.5 % (0.0-6.0); HEMATOCRIT 41 % (33-45); HEMOGLOBIN 13.4 g/dL (11.5-14.8); LYMPHOCYTES # (AUTO) 2.2 /CMM (0.8-4.8); MEAN CORPUSCULAR HEMOGLOBIN 30 PG (26.0-33.0); MEAN CORPUSCULAR HGB CONC 33 g/dl (31.0-36.0); MEAN CORPUSCULAR VOLUME 90 fL (82-100); MONOCYTES # (AUTO) 1.1 /CMM (0.1-1.30); NEUTROPHILS # (AUTO) 8.9 /CMM (1.8-8.9); NEUTROPHILS % (AUTO) 67.8 % (43.0-81.0); PLATELET COUNT (AUTO) 345 /CMM (150-450); RDW COEFFICIENT OF VARIATION 14.3 (11.5-15.0); RED BLOOD CELL COUNT(AUTO) 4.54 MIL/uL (4.0-5.2); WHITE BLOOD COUNT (AUTO) 13.2 K/uL (4.3-11.0)
[2017-03-29 18:27] LABS: APPEARANCE,URINE Clear (CLEAR); BILIRUBIN,URINE Negative (NEGATIVE); BLOOD, URINE Large Ery/uL (NEGATIVE); COLOR,URINE Yellow (YELLOW); KETONES,URINE Negative (NEGATIVE); LEUKOCYTE ESTERASE ,URINE Trace (NEGATIVE); NITRITE, URINE Negative (NEGATIVE); PROTEIN,URINE Negative (NEGATIVE); UGLUCOSE Negative (NEGATIVE); UROBILINOGEN,URINE 0.2 EU/dL (0.2)
--- NOTE | 2017-03-29 18:29 | NUR ---
PAGED EPIC FOR PANEL
--- NOTE | 2017-03-29 18:30 | NUR ---
REPORT GIVEN TO ELTON FRIAS FOR GRADY UPON ADMISSION.
[2017-03-29 18:35] LABS: CALCIUM, SERUM 9.1 mg/dL (8.5-10.1); CREATININE 0.4 mg/dL (0.6-1.3); POTASSIUM 4.3 mmol/L (3.5-5.1)
[2017-03-29 18:37] LABS: BACTERIA,URINE Moderate /HPF (None Seen); SQUAMOUS EPITHELIAL CELL,UR Few /HPF (None Seen)
[2017-03-29 18:41] LABS: ALBUMIN 3.1 g/dL (3.4-5.0); BILIRUBIN,DIRECT 0.1 mg/dL (0.0-0.2); BILIRUBIN,TOTAL 0.4 mg/dL (0.2-1.0); TOTAL PROTEIN, SERUM 7.8 g/dL (6.4-8.2)
--- NOTE | 2017-03-29 18:45 | NUR ---
PATIENT TRANSPORTED TO [facility]- VIA STRETCHER. RNELTON TO PROVIDE GRADY.
[2017-03-29] MEDS ORDERED: OXYC20TA73 PO (18:46)
[2017-03-29] MEDS ORDERED: ZOLP10TA2 PO (18:46)
[2017-03-29] MEDS ORDERED: HYDR4TAB4 PO (18:46)
[2017-03-29] MEDS ORDERED: CYCL5TAB PO (18:46)
[2017-03-29 19:07] VITALS: BP 135/76
--- NOTE | 2017-03-29 19:09 | NUR ---
RN NOTES PATIENT RECEIVED FROM E.R. DEPARTMENT, ALERT AND ORIENTED X4, C/O BACK PAIN ESPECIALLY DURING MOVEMENT. PATIENT KEPT COMFORTABLE, NO S/SX OF RESP DISTRESS. INFORMED DR. MORENO OF ADMISSION, AWAITING FOR ORDERS. WILL ENDORSE TO FEEDER SWITCHBOARD OPERATOR FOR GRADY.
--- NOTE | 2017-03-29 19:40 | NUR ---
RN OPENING NOTE; RECEIVED PT IN BED W/ FAMILY AT THE BED SIDE. VERY ANXIOUS AND RESTLESS. COMPLAINING OF BACK PAIN AND REQUESTING PAIN MEDICATION. BREATHING EVENLY. NO SOB. F/C IN PLACE DRAINING CLEAR YELLOW URINE. CALL LIGHT WITHIN REACH. WILL CONT TO MONITOR AND WILL F/U W/ MD'S ORDER AND PAIN MANAGEMENT.
[2017-03-29 20:00] VITALS: BP 145/96
--- NOTE | 2017-03-29 20:00 | NUR ---
A MESSAGE WAS SENT TO DR. MORENO FOR ORDERS FOR PAIN MEDICATION AND NICOTINE PATCH. WILL CONT TO F/U.
--- NOTE | 2017-03-29 20:19 | NUR ---
PAGED AUREA GIL ESTIMATOR AND DRAFTER SUPERVISOR FOR PAIN MEDICATION ORDER. WILL WAIT FOR CALL BACK.
[2017-03-29] MEDS ORDERED: ONDANSETRON HCL/PF 4 MG/2 ML VIAL IVP PRN (20:30)
[2017-03-29] MEDS ORDERED: ZOLPIDEM TARTRATE 5 MG TABLET PO PRN (20:30)
[2017-03-29] MEDS ORDERED: MAGNESIUM HYDROXIDE 30 ML UDC PO PRN (20:30)
[2017-03-29] MEDS ORDERED: HYDROCODONE/APAP 5/325MG 1 EACH TABLET PO PRN (20:30)
[2017-03-29] MEDS ORDERED: Z GUARD REMEDY 2 OZ OINT TP PRN (20:30)
[2017-03-29] MEDS ORDERED: ACETAMINOPHEN 325 MG TABLET PO PRN (20:30)
[2017-03-29] MEDS ORDERED: MAG HYDROX/AL HYDROX/SIMETH 30 ML UDC PO PRN (20:30)
[2017-03-29] MEDS: HYDROMORPHONE INJ 2 MG/ML DISP.SYRIN IV PRN (20:45)
--- NOTE | 2017-03-29 20:45 | NUR ---
DILAUDID 4MG GIVEN ORDERED PER PT'S REQUEST FOR C/O SEVERE BACK PAIN. WILL CONT TO MONITOR ,
[2017-03-29] MEDS: NICOTINE PATCH (21MG) 21 MG PATCH.TD24 TD SCH (20:53)
[2017-03-29] MEDS: ENOXAPARIN SODIUM 40 MG/0.4 ML DISP.SYRIN SQ SCH (20:59)
[2017-03-29] MEDS: BACLOFEN (10 MG) 10 MG TABLET PO SCH (21:24)
[2017-03-29] MEDS ORDERED: ZOLPIDEM TARTRATE 10 MG TABLET PO SCH (22:00)
[2017-03-30] MEDS: oxyCODONE HCL SR 20MG TAB.SR.12H PO SCH ×5 (00:03→23:05)
[2017-03-30] MEDS ORDERED: HYDROMORPHONE INJ 2 MG/ML DISP.SYRIN ONE ×2 (01:22→04:10)
[2017-03-30] MEDS: HYDROMORPHONE INJ 2 MG/ML DISP.SYRIN IV PRN ×4 (01:27→22:53)
--- NOTE | 2017-03-30 01:27 | NUR ---
DILAUDID 4MG GIVEN ORDERED PER PT'S REQUEST FOR C/O SEVERE BACK PAIN. WILL CONT TO MONITOR ,
--- NOTE | 2017-03-30 05:28 | NUR ---
DILAUDID 4MG GIVEN ORDERED PER PT'S REQUEST FOR C/O SEVERE BACK PAIN. WILL CONT TO MONITOR .
--- NOTE | 2017-03-30 06:28 | NUR ---
PT IN BED AWAKE, BREATHING EVENLY. W/ INTERMITTENT BACK PAIN. PAIN MEDS GIVEN ORDERED PER PT'S REQUEST. RESTLESS W/ POOR SLEEP PATTERN DURING THE NIGHT, NEEDS ATTENDED . ASSISTED W/ ADLS. CALL LIGHT WITHIN REACH. WILL CONT TO MONITOR AND WILL ENDORSE TO AM SHIFT FOR GRADY .
[2017-03-30 06:32] LABS: BASOPHILS % (AUTO) 0.3 % (0.0-2.0); EOSINOPHILS # (AUTO) 0.4 /CMM (0.0-0.7); EOSINOPHILS % (AUTO) 4.7 % (0.0-6.0); HEMATOCRIT 35 % (33-45); HEMOGLOBIN 11.6 g/dL (11.5-14.8); LYMPHOCYTES % (AUTO) 23.1 % (20.0-44.0); MEAN CORPUSCULAR HEMOGLOBIN 30 PG (26.0-33.0); MEAN CORPUSCULAR HGB CONC 33 g/dl (31.0-36.0); MEAN CORPUSCULAR VOLUME 91 fL (82-100); MONOCYTES # (AUTO) 0.7 /CMM (0.1-1.30); MONOCYTES % (AUTO) 7.9 % (2.0-12.0); NEUTROPHILS # (AUTO) 5.7 /CMM (1.8-8.9); PLATELET COUNT (AUTO) 289 /CMM (150-450); RDW COEFFICIENT OF VARIATION 15.2 (11.5-15.0); RED BLOOD CELL COUNT(AUTO) 3.85 MIL/uL (4.0-5.2); WHITE BLOOD COUNT (AUTO) 8.9 K/uL (4.3-11.0)
[2017-03-30 07:02] LABS: CALCIUM, SERUM 8.4 mg/dL (8.5-10.1); CREATININE 0.5 mg/dL (0.6-1.3); MAGNESIUM 1.7 mg/dL (1.8-2.4); POTASSIUM 3.7 mmol/L (3.5-5.1)
--- NOTE | 2017-03-30 07:30 | NUR ---
PT RECEIVED RESTING COMFORTABLY IN BED. NO S/S OR C/O DISTRESS NOTED. SIDE RAILS UP X2, CALL LIGHT LEFT WITHIN REACH. WILL CONTINUE PLAN OF CARE.
[2017-03-30 08:00] VITALS: BP 143/83
[2017-03-30] MEDS: TIZANIDINE HCL 4 MG TABLET PO SCH ×3 (09:51→18:50)
[2017-03-30] MEDS: SENNOSIDES 8.6 MG TABLET PO SCH (09:51)
[2017-03-30] MEDS: BACLOFEN (10 MG) 10 MG TABLET PO SCH ×3 (09:52→18:50)
[2017-03-30] MEDS: ZINC SULFATE 220 MG CAPSULE PO SCH (09:52)
[2017-03-30] MEDS: MULTIVITAMINS,THERAGRAN 1 UDTAB TABLET PO SCH (09:52)
[2017-03-30] MEDS: DOCUSATE SODIUM 100 MG CAPSULE PO SCH ×2 (09:52→18:51)
[2017-03-30] MEDS: NICOTINE PATCH (21MG) 21 MG PATCH.TD24 TD SCH (09:57)
[2017-03-30] MEDS ORDERED: HYDROMORPHONE INJ 0.5 MG/0.5 ML SYRINGE IV PRN (10:30)
[2017-03-30] MEDS: Magnesium 1GM/D5W 100ML PREMIX 100 ML IV SCH ×2 (14:00→15:55)
[2017-03-30] MEDS ORDERED: Magnesium 1GM/D5W 100ML PREMIX 100 ML IV SCH (15:00)
[2017-03-30 16:07] VITALS: BP 131/82
[2017-03-30] MEDS ORDERED: AMPHET ASP PO SCH (17:00)
[2017-03-30] MEDS ORDERED: D AMPHET PO SCH (17:00)
[2017-03-30] MEDS ORDERED: AMPHET PO SCH (17:00)
--- NOTE | 2017-03-30 19:00 | NUR ---
MS RN NOTE: PATIENT RESTING IN BED, A/OX4. STABLE, NO ACUTE DISTRESS NOTED. BREATHING EVEN AND UNLABORED, NO SOB NOTED. BED LOCKED AND IN LOWEST POSITION, CALL LIGHT IN REACH. WILL CONTINUE TO MONITOR.
--- NOTE | 2017-03-30 19:04 | NUR ---
CHANGE OF SHIFT REPORT PT RESTING COMFORTABLY IN BED. NO S/S OR C/O PAIN OR DISTRESS NOTED. SIDE RAILS UP X2, CALL LIGHT LEFT WITHIN REACH. PT KEPT CLEAN, DRY, AND COMFORTABLE. NO SIGNIFICANT CHANGES SINCE PREVIOUS SHIFT. WILL GIVE REPORT TO PAUL FRIAS.
[2017-03-30 20:00] VITALS: BP 126/81
[2017-03-30 20:20] VITALS: BP 126/81
[2017-03-30] MEDS: ZOLPIDEM TARTRATE 10 MG TABLET PO SCH (21:23)
[2017-03-30] MEDS: ENOXAPARIN SODIUM 40 MG/0.4 ML DISP.SYRIN SQ SCH (21:31)
[2017-03-30 23:05] VITALS: BP 130/77
--- NOTE | 2017-03-30 23:05 | NUR ---
MS RN NOTES: MEDICATION PATIENT REQUEST TO TAKE MEDICATION OF HER OXYCONTIN PER PT SHE'S REALLY IN PAIN, NON PHARMACOLOGICAL IMPLEMENTED INEFFECTIVE 10-10 VS STABLE WILL GIVE MEDICATION PER ORDERED.
[2017-03-31] MEDS: oxyCODONE HCL SR 20MG TAB.SR.12H PO SCH ×3 (05:06→17:54)
[2017-03-31] MEDS: HYDROMORPHONE INJ 2 MG/ML DISP.SYRIN IV PRN ×5 (05:32→23:29)
--- NOTE | 2017-03-31 06:29 | NUR ---
MS RN CLOSING NOTES PT COMFORTABLY ASLEEP AND EASILY AWAKEN, TOLERATING ROOM AIR 02 SAT 98% IN STABLE CONDITION. RESPIRATION EVEN AND UNLABORED. KEPT CLEAN AND DRY AND COMFORTABLE, ALL NURSING CARE RENDERED. NEEDS ATTENDED AND ANTICIPATED, FREQUENT VISUAL CHECK DONE FOR SAFETY EVERY 2 HOURS. NO COMPLAINS OF PAIN. GOOD SKIN CARE PROVIDED, ASSISTED REPOSITION Q2H. ON LOW BED AT ALL TIMES TO ENSURE SAFETY. SAFE HAZARD FREE ENVIRONMENT PROVIDED. CALL LIGHT WITHIN EASY TO REACH. WILL ENDORSE NEXT SHIFT CONTINUITY OF CARE
[2017-03-31 06:51] VITALS: BP 129/70
[2017-03-31 06:55] LABS: CALCIUM, SERUM 8.5 mg/dL (8.5-10.1); CREATININE 0.5 mg/dL (0.6-1.3); MAGNESIUM 1.9 mg/dL (1.8-2.4)
--- NOTE | 2017-03-31 07:45 | NUR ---
RN OPEN NOTES RECEIVED REPORT FROM BEHAVIORAL INTERVENTION SPECIALIST NURSE. PATIENT IS IN BED, AWAKE, ALERT AND ORIENTED TO NAME, PLACE AND TIME. NO SIGNS AND SYMPTOMS OF DISTRESS. BED IN LOW POSITION, LOCKED AND TWO SIDE RAILS FOR SAFETY. CALL LIGHT WITHIN REACH FOR SAFETY. WILL CONTINUE TO ASSESS AND MONITOR PATIENT
[2017-03-31 08:00] VITALS: BP 152/80
[2017-03-31] MEDS: NICOTINE PATCH (21MG) 21 MG PATCH.TD24 TD SCH (08:36)
[2017-03-31] MEDS: DOCUSATE SODIUM 100 MG CAPSULE PO SCH ×2 (08:36→16:30)
[2017-03-31] MEDS: TIZANIDINE HCL 4 MG TABLET PO SCH ×4 (08:36→21:10)
[2017-03-31] MEDS: MULTIVITAMINS,THERAGRAN 1 UDTAB TABLET PO SCH (08:36)
[2017-03-31] MEDS: ZINC SULFATE 220 MG CAPSULE PO SCH (08:36)
[2017-03-31] MEDS: BACLOFEN (10 MG) 10 MG TABLET PO SCH ×3 (08:36→16:30)
[2017-03-31] MEDS: SENNOSIDES 8.6 MG TABLET PO SCH (08:36)
--- NOTE | 2017-03-31 10:15 | NUR ---
DR MORENO AT BEDSIDE
--- NOTE | 2017-03-31 14:00 | NUR ---
PATIENT LEFT THE FLOOR FOR A CT
--- NOTE | 2017-03-31 14:35 | NUR ---
PATIENT ARRIVED TO THE FLOOR FROM CT. PAIN LEVEL 10/10
--- NOTE | 2017-03-31 14:50 | NUR ---
DR YANES AT BEDSIDE TO REMOVED STITCHES
[2017-03-31 16:00] VITALS: BP 124/74
[2017-03-31] MEDS ORDERED: TIZANIDINE HCL 4 MG TABLET PO SCH (18:00)
--- NOTE | 2017-03-31 18:40 | NUR ---
RN CLOSING NOTES PT COMFORTABLY IN BED. AT BEDSIDE. TOLERATING ROOM AIR 02 SAT 95% IN STABLE CONDITION. RESPIRATION EVEN AND UNLABORED. KEPT CLEAN AND DRY AND COMFORTABLE, ALL NURSING CARE RENDERED. NEEDS ATTENDED AND ANTICIPATED, FREQUENT VISUAL CHECK DONE FOR SAFETY EVERY 2 HOURS. TX ORDERED, GOOD SKIN CARE PROVIDED. REPOSITION Q2H. BED IN LOW POSITION, LOCKED AND TWO SIDE RAILS ARE UP ON AT ALL TIMES TO ENSURE SAFETY. SAFE HAZARD FREE ENVIRONMENT PROVIDED. CALL LIGHT WITHIN EASY TO REACH. WILL ENDORSE NEXT SHIFT CONTINUITY OF CARE
--- NOTE | 2017-03-31 19:00 | NUR ---
MS RN NOTE: PATIENT RESTING IN BED, A/OX 4. IN STABLE, NO ACUTE DISTRESS NOTED. BREATHING EVEN AND UNLABORED, NO SOB NOTED. BED LOCKED AND IN LOWEST POSITION, CALL LIGHT IN REACH. WILL CONTINUE TO MONITOR.
[2017-03-31 20:00] VITALS: BP 145/80
[2017-03-31] MEDS: TOPIRAMATE 25 MG TABLET PO SCH (21:10)
[2017-03-31] MEDS: ZOLPIDEM TARTRATE 10 MG TABLET PO SCH (21:10)
[2017-03-31] MEDS: ENOXAPARIN SODIUM 40 MG/0.4 ML DISP.SYRIN SQ SCH (21:17)
[2017-03-31] MEDS ORDERED: HYDROMORPHONE INJ 2 MG/ML DISP.SYRIN ONE (23:11)
[2017-04-01] MEDS: oxyCODONE HCL SR 20MG TAB.SR.12H PO SCH ×4 (00:22→17:06)
[2017-04-01] MEDS ORDERED: HYDROMORPHONE INJ 2 MG/ML DISP.SYRIN ONE (04:27)
[2017-04-01] MEDS: HYDROMORPHONE INJ 2 MG/ML DISP.SYRIN IV PRN (04:39)
--- NOTE | 2017-04-01 06:33 | NUR ---
MS RN CLOSING NOTES PT TOLERATING ROOM AIR 02 SAT 99% PT ASLEEP AND EASILY AWAKEN, NO S/S OF DISTRESS, STABLE CONDITION. RESPIRATION EVEN AND UNLABORED. TX ORDERED, GOOD SKIN CARE PROVIDED. ALL NURSING CARE RENDERED. NEEDS ATTENDED AND ANTICIPATED, KEPT CLEAN AND DRY AND COMFORTABLE, FREQUENT VISUAL CHECK DONE FOR SAFETY EVERY 2 HOURS. ASSISTED REPOSITION Q2H. ON LOW BED AT ALL TIMES TO ENSURE SAFETY. SAFE HAZARD FREE ENVIRONMENT PROVIDED. CALL LIGHT WITHIN EASY TO REACH. WILL ENDORSE NEXT SHIFT CONTINUITY OF CARE
[2017-04-01] MEDS ORDERED: HYDROMORPHONE INJ 0.5 MG/0.5 ML SYRINGE IV PRN (07:00)
--- NOTE | 2017-04-01 07:20 | NUR ---
RECEIVED PATIENT A/O X4, COOPERATIVE, ANXIOUS AT TIMES. PATIENT IS IN BED. ABLE TU TURN FROM SIDE TO SIDE AND MOVE THE TOES, UNABLE TO AMBULATE. BED IS LOCKED IN LOWEST POSITION, SIDE RAILS UP X2, CALL LIGHT WITHIN REACH. EDUCATED THE PATIENT TO USE THE CALL LIGHT TO CALL FOR ASSISTANCE. VERBALIZED UNDERSTANDING. ALL BELONGINGS WITHIN REACH. ALL NEEDS ARE MET. WILL CONTINUE TO ASSESS/MONITOR THROUGHOUT THE SHIFT.
[2017-04-01] MEDS: KETOROLAC TROMETHAMINE INJ 30 MG/ML VIAL IV PRN ×2 (07:37→16:31)
--- NOTE | 2017-04-01 07:57 | NUR ---
PATIENT COMPLAINS OF PAIN IN LOW BACK RATING 5/10. TORADOL ADMINISTERED PRESCRIBED
[2017-04-01 08:00] VITALS: BP 145/92
[2017-04-01] MEDS: NICOTINE PATCH (21MG) 21 MG PATCH.TD24 TD SCH (09:00)
[2017-04-01] MEDS: ZINC SULFATE 220 MG CAPSULE PO SCH (09:02)
[2017-04-01] MEDS: DOCUSATE SODIUM 100 MG CAPSULE PO SCH ×2 (09:02→16:32)
[2017-04-01] MEDS: SENNOSIDES 8.6 MG TABLET PO SCH (09:03)
[2017-04-01] MEDS: MULTIVITAMINS,THERAGRAN 1 UDTAB TABLET PO SCH (09:03)
[2017-04-01] MEDS: BACLOFEN (10 MG) 10 MG TABLET PO SCH ×3 (09:04→16:31)
[2017-04-01] MEDS: TIZANIDINE HCL 4 MG TABLET PO SCH ×3 (09:05→16:32)
[2017-04-01] MEDS: TOPIRAMATE 25 MG TABLET PO SCH (09:05)
--- NOTE | 2017-04-01 09:07 | NUR ---
PREVIOUS SHIFT MEDICATIONS DOCUMENTED NON-ADMINISTERED TO RID OF RED PASSED DUE REMINDER.
[2017-04-01] MEDS ORDERED: TOPI25TA PO (13:35)
[2017-04-01] MEDS ORDERED: KETO10TA2 PO (13:35)
--- NOTE | 2017-04-01 14:32 | NUR ---
pATIENT COMPLAINS OF BREAK THROUGH PAIN IN LOW BACK RATING 9/10. NORCO ADMINISTERED PRESCRIBED.
[2017-04-01 16:00] VITALS: BP 128/79
--- NOTE | 2017-04-01 16:37 | NUR ---
Patient complains of intermittent moderate-to -sever pain. Toradol administered as prescribed.
--- NOTE | 2017-04-01 18:20 | NUR ---
DISCHARGE ORDER RECEIVED. DISCHARGE EDUCATION PROVIDED TO THE PATIENT. IV CATHETER REMOVED WITH THE TIP INTACT. OCLUSIVE DRESSING APPLIED. PATIENT'S BRUNO IS HERE TO DEPARTMENT SPECIALIST THE PATIENT. ALL BELONGINGS ACCOUNTED FOR. PATIENT CAME WITH THE BURGOS CATHETER DUE TO NEUROGENIC BLADDER AND IS TO LEAVE THE HOSPITAL WITH THE BURGOS. PATIENT STATED SHE FOLLOW [employer] WITH THE OUTPATIENT UROLOGIST FOR MANAGEMENT OF THE CATHETER CARE. PATIENT VERBALIZED UNDERSTANDING OF DISCHARGE INSTRUCTIONS.
--- NOTE | 2017-04-01 18:57 | NUR ---
PATIENT LEFT THE UNIT VIA WHEELCHAIR IN STABLE CONDITION.
== END 2017-04-01 18:52 | disposition home or self-care (01) | DRG 552 ==
LOC: ER 16:30 → MEDSG2 19:03
PROVIDERS: ADMIT Internal Medicine; ATTEND Internal Medicine
DX: M51.06 Intervertebral disc disorders with myelopathy, lumbar region (principal); G82.20 Paraplegia, unspecified; D68.69 Other thrombophilia; F11.20 Opioid dependence, uncomplicated; N31.9 Neuromuscular dysfunction of bladder, unspecified; R65.10 Systemic inflammatory response syndrome (SIRS) of non-infectious origin without acute organ dysfunction; M54.9 Dorsalgia, unspecified; D72.829 Elevated white blood cell count, unspecified; F17.200 Nicotine dependence, unspecified, uncomplicated; G89.4 Chronic pain syndrome; Z98.1 Arthrodesis status; Z88.0 Allergy status to penicillin; M62.830 Muscle spasm of back; Z98.890 Other specified postprocedural states
CPT/HCPCS: 36415; 72131-TC; 73502; 73552; 80048-TC; 80076-TC; 81000-TC; 83735-TC; 84100-TC; 84703-TC; 85025-TC; 87081-TC; 87086-TC; 87186-TC; A4606; A6253; J1170; J1650; J1885; J2405; J3475; J7030; Z7610

== ENCOUNTER 2017-05-02 14:12 | Outpatient (CLI) | payer OTHER, MEDICAID ==
[~2017-05-02 14:12] MED LIST changes: +KETO10TA2 PO; -OXYB10TA PO; -OXYC-133 PO; +OXYC20TA73 PO; +TOPI25TA PO; +ZOLP10TA2 PO
== END 2017-05-02 23:59 | disposition home or self-care (01) ==
LOC: MSC 14:12
PROVIDERS: ATTEND Anesthesiology
DX: G89.29 Other chronic pain (principal); G95.89 Other specified diseases of spinal cord; T14.90XS Injury, unspecified, sequela; M54.5 Low back pain; M96.1 Postlaminectomy syndrome, not elsewhere classified; M47.27 Other spondylosis with radiculopathy, lumbosacral region; M47.26 Other spondylosis with radiculopathy, lumbar region; G82.20 Paraplegia, unspecified; F11.20 Opioid dependence, uncomplicated; M62.830 Muscle spasm of back; M25.9 Joint disorder, unspecified; Z98.1 Arthrodesis status

== ENCOUNTER 2017-06-20 12:00 | Outpatient (CLI) | payer BC, MEDICAID | END 2017-06-20 23:59 | disposition home or self-care (01) | LOC: MSC 12:00 | PROVIDERS: ATTEND Anesthesiology | DX: G95.89 Other specified diseases of spinal cord (principal); T14.90XS Injury, unspecified, sequela; G47.00 Insomnia, unspecified; M96.1 Postlaminectomy syndrome, not elsewhere classified; M51.26 Other intervertebral disc displacement, lumbar region; M47.27 Other spondylosis with radiculopathy, lumbosacral region; M47.26 Other spondylosis with radiculopathy, lumbar region; M25.9 Joint disorder, unspecified; M62.830 Muscle spasm of back; Z99.3 Dependence on wheelchair; Z79.891 Long term (current) use of opiate analgesic; X58.XXXD Exposure to other specified factors, subsequent encounter; Y92.89 Other specified places as the place of occurrence of the external cause ==

== ENCOUNTER 2017-07-11 14:00 | Outpatient (CLI) | payer BC, MEDICAID | END 2017-07-11 23:59 | disposition home or self-care (01) | LOC: MSC 14:00 | PROVIDERS: ATTEND Anesthesiology | DX: G95.89 Other specified diseases of spinal cord (principal); T14.90XS Injury, unspecified, sequela; M96.1 Postlaminectomy syndrome, not elsewhere classified; M51.26 Other intervertebral disc displacement, lumbar region; M47.27 Other spondylosis with radiculopathy, lumbosacral region; M47.26 Other spondylosis with radiculopathy, lumbar region; G89.29 Other chronic pain; M25.9 Joint disorder, unspecified; G62.9 Polyneuropathy, unspecified; G47.00 Insomnia, unspecified; Z98.1 Arthrodesis status; G82.20 Paraplegia, unspecified; Z79.891 Long term (current) use of opiate analgesic; X58.XXXS Exposure to other specified factors, sequela ==

== ENCOUNTER 2017-07-25 14:00 | Outpatient (CLI) | payer BC, MEDICAID | END 2017-07-25 23:59 | disposition home or self-care (01) | LOC: MSC 14:00 | PROVIDERS: ATTEND Anesthesiology | DX: M51.26 Other intervertebral disc displacement, lumbar region (principal); M47.27 Other spondylosis with radiculopathy, lumbosacral region; M47.26 Other spondylosis with radiculopathy, lumbar region; G95.89 Other specified diseases of spinal cord; T14.90XS Injury, unspecified, sequela; M96.1 Postlaminectomy syndrome, not elsewhere classified; M25.9 Joint disorder, unspecified; M62.830 Muscle spasm of back; G47.00 Insomnia, unspecified; G82.20 Paraplegia, unspecified; G89.29 Other chronic pain; F11.20 Opioid dependence, uncomplicated; Z99.3 Dependence on wheelchair; X58.XXXS Exposure to other specified factors, sequela ==

== ENCOUNTER 2017-08-22 15:00 | Outpatient (CLI) | payer BC, MEDICAID | END 2017-08-22 23:59 | disposition home or self-care (01) | LOC: MSC 15:00 | PROVIDERS: ATTEND Anesthesiology | DX: G95.89 Other specified diseases of spinal cord (principal); T14.90XS Injury, unspecified, sequela; M96.1 Postlaminectomy syndrome, not elsewhere classified; M51.26 Other intervertebral disc displacement, lumbar region; M47.27 Other spondylosis with radiculopathy, lumbosacral region; M47.26 Other spondylosis with radiculopathy, lumbar region; M25.9 Joint disorder, unspecified; M62.830 Muscle spasm of back; G47.00 Insomnia, unspecified; G82.20 Paraplegia, unspecified; Z98.1 Arthrodesis status; X58.XXXS Exposure to other specified factors, sequela; F11.20 Opioid dependence, uncomplicated; Z88.0 Allergy status to penicillin ==